=== PATIENT | female | born 1980 | race Caucasian/White ===

== ENCOUNTER 2021-06-16 12:57 | Inpatient (IN) ==
[2021-06-16 14:00] LABS: Basophils # 0.1 K/mcL (0.0-0.2); Basophils % 0.6 %; Eosinophils # 0.1 K/mcL (0.0-0.6); Eosinophils % 0.5 %; Hematocrit 43.9 % (35.3-44.9); Hemoglobin 14.6 g/dL (11.5-15.4); Immature Granulocytes % 0.3 % (0-4); Lymphocytes # 2.7 K/mcL (0.6-4.6); Mean Corpuscular HGB Conc 33.3 g/dL (31.6-35.5); Mean Corpuscular Hemoglobin 30.7 pg (28.0-33.3); Mean Corpuscular Volume 92.2 fL (83.0-100.0); Mean Platelet Volume 9.2 fL (9.4-12.4); Monocytes # 0.6 K/mcL (0.0-1.3); Monocytes % 4.8 %; Neutrophils # 9.4 K/mcL (1.6-8.9); Platelet Count 418 K/mcL (140-400); Red Blood Count 4.76 M/mcL (3.82-4.97); Red Cell Distribution Width 11.9 % (11.5-14.5); Segmented Neutrophils % 72.8 %
[2021-06-16 14:09] LABS: Bacteria,Urine Few per hpf (None-Few); Bilirubin,Urine Negative (Negative); Blood,Urine Moderate (Negative); Clarity,Urine Clear (Clear); Color,Urine Light-Yellow (Yellow); Glucose,Urine (UA) Normal (Normal); Ketones,Urine Negative (Negative); Leukocyte Esterase,Urine Small (Negative); Mucus,Urine Few per lpf (None-Few); Nitrite,Urine Negative (Negative); Protein,Urine Negative (Neg-Trace); Specific Gravity,Urine 1.018 (1.010-1.025); Squamous Epithelial Cell,Urine Moderate per hpf (None-Few); Urobilinogen,Urine Normal (Normal)
[2021-06-16 14:14] LABS: Amphetamine Screen,Urine Negative ng/mL (Cutoff=1000); Barbiturate Screen,Urine Negative ng/mL (Cutoff=200); Benzodiazepines Screen,Urine Negative ng/mL (Cutoff=200); Cannabinoid Screen,Urine Negative ng/mL (Cutoff = 50); Cocaine Screen,Urine Negative ng/mL (Cutoff= 300); Opiate Screen,Urine Negative ng/mL (Cutoff=300); Phencyclidine Screen,Urine Negative ng/mL (Cutoff=25)
[2021-06-16 14:29] LABS: Acetaminophen < 10 mcg/mL (10-20); BUN/Creatinine Ratio 14 (6-26); Blood Urea Nitrogen 10 mg/dL (6-20); Calcium 9.8 mg/dL (8.6-10.3); Carbon Dioxide 27 mEq/L (23-29); Chloride 103 mEq/L (98-107); Glucose 99 mg/dL (70-105); Osmolality,Calculated 283 (280-300); Potassium 3.9 mEq/L (3.5-5.1); Salicylate < 2.5 mg/dL (15.0-30.0); Sodium 137 mEq/L (136-145); eGFR For African Americans > 60 (> 60); eGFR For Non-African Americans > 60 (> 60)
[2021-06-16 15:20] LABS: Ethanol < 10 mg/dL (Less than 10)
[2021-06-16 19:28] LABS: Influenza A PCR Negative (Negative); Influenza B PCR Negative (Negative); Resp. Syncytial Virus PCR Negative (Negative)
[2021-06-16 19:31] LABS: SARS-CoV-2 by PCR (In House) Negative (Negative)
[2021-06-16] MEDS ORDERED: *HR* LORazepam 1 MG TABLET PO PRN (21:41)
[2021-06-16] MEDS ORDERED: *HR* LORazepam 2 MG/ML VIAL IM PRN (21:41)
[2021-06-16] MEDS ORDERED: traZODone 50 MG TABLET PO PRN (21:41)
[2021-06-16] MEDS ORDERED: haloperidoL 5 MG TABLET PO PRN (21:41)
[2021-06-16] MEDS ORDERED: Haloperidol Lactate 5 MG/ML VIAL IM PRN (21:41)
[2021-06-16] MEDS: Acetaminophen 325 MG TABLET PO PRN (21:56)
[2021-06-17] MEDS ORDERED: MOM Conc 10 ML UD.LIQ PO PRN (10:07)
[2021-06-17] MEDS ORDERED: Mag Hydrox/Al Hydrox/Simeth 30 ML UDC PO PRN (10:07)
[2021-06-17] MEDS: BuPROPion XL (24 HR) 150 MG TABLET PO SCH (14:25)
[2021-06-17] MEDS: Acetaminophen 325 MG TABLET PO PRN (20:06)
[2021-06-17] MEDS: hydrOXYzine pamoate 25 MG CAPSULE PO PRN (21:00)
[2021-06-18] MEDS: BuPROPion XL (24 HR) 150 MG TABLET PO SCH (08:37)
[2021-06-18] MEDS: Aspirin 81 MG TAB.CHEW PO SCH (08:37)
[2021-06-18] MEDS: hydrOXYzine pamoate 25 MG CAPSULE PO PRN ×2 (18:49→22:28)
[2021-06-18] MEDS: ARIPiprazole 2 MG TABLET PO SCH (21:21)
[2021-06-19] MEDS: hydrOXYzine pamoate 25 MG CAPSULE PO PRN ×3 (06:19→18:13)
[2021-06-19] MEDS: Aspirin 81 MG TAB.CHEW PO SCH (09:07)
[2021-06-19] MEDS: BuPROPion XL (24 HR) 150 MG TABLET PO SCH (09:07)
[2021-06-19 20:25] VITALS: O2SAT 99
[2021-06-19] MEDS: ARIPiprazole 2 MG TABLET PO SCH (21:27)
[2021-06-20] MEDS: Aspirin 81 MG TAB.CHEW PO SCH (08:01)
[2021-06-20] MEDS: BuPROPion XL (24 HR) 150 MG TABLET PO SCH (08:02)
[2021-06-20] MEDS: Acetaminophen 325 MG TABLET PO PRN (08:06)
[2021-06-20 09:56] VITALS: BP 130/85; PULSE 94; TEMP 98.6
== END 2021-06-20 14:10 | disposition home or self-care (01) | DRG 751 ==
LOC: EMEROOARM 12:57 → 1ANU 21:40
PROVIDERS: ADMIT Psychiatry & Neurology Psychiatry; ATTEND Psychiatry & Neurology Psychiatry